=== PATIENT | female | born 1965 | race Asian ===

== ENCOUNTER 2018-09-26 01:04 | Emergency (ER) | payer MEDICAID ==
[2018-09-26 01:57] VITALS: BP 124/74
[2018-09-26 03:12] LABS: Basophils # (Auto) 0.1 K/mm3 (0.0-0.1); Basophils % (Auto) 0.5 % (0.0-1.8); Eosinophils # (Auto) 0.3 K/mm3 (0.0-0.4); Eosinophils % (Auto) 2.5 % (0.0-4.3); Hematocrit 34.5 % (30.3-42.9); Hemoglobin 11.5 gm/dl (10.1-14.3); Lymphocytes # (Auto) 2.8 K/mm3 (1.2-5.4); Lymphocytes % (Auto) 21.1 % (13.4-35.0); Mean Corpuscular HGB Conc 33 % (30-34); Mean Corpuscular Volume 89 fl (79-97); Monocytes # (Auto) 1.1 K/mm3 (0.0-0.8); Monocytes % (Auto) 8.4 % (0.0-7.3); Platelet Count 236 K/mm3 (140-440); Red Cell Distribution Width 15.3 % (13.2-15.2)
[2018-09-26 03:35] LABS: Calcium 9.3 mg/dL (8.4-10.2); Hemolysis Index 9
[2018-09-26 03:50] LABS: BUN/Creatinine Ratio 40; Blood Urea Nitrogen 12 mg/dL (7-17)
[2018-09-26] MEDS ORDERED: K-DUR PO ONE (04:35)
[2018-09-26] MEDS ORDERED: NEURONTIN PO ONE (04:35)
--- NOTE | 2018-09-26 05:24 | Emergency Department Report ---
ED Extremity Problem HPI - General Chief complaint: Medical Clearance Stated complaint: GENERAL PAIN, LOWER EXTREMITY ITCHING Time Seen by Provider: 09/26/18 04:34 Source: patient, EMS Mode of arrival: Stretcher Limitations: No Limitations - History of Present Illness Initial comments: 52-year-old female with a past medical history of HIV, depression, MR, multiple strokes, functional quadriplegia, and colostomy presents to the hospital of complaints of a tingling sensation to bilateral lower extremities. Sensation symptoms with neuropathy in the past. Patient states she uses a topical cream but to her knowledge she is not on any neuropathy medication. She denies significant rash or fever. Severity scale (0 -10): 0 - Related Data Home Medications Medication Instructions Recorded Confirmed Last Taken Tivicay 50 mg PO DAILY 02/19/18 02/19/18 Unknown Previous Rx's Medication Instructions Recorded Last Taken Type Descovy 200-25 mg Tablet 200 mg PO DAILY #30 02/23/18 Unknown Rx Dilantin 100 mg PO Q8HR #90 02/23/18 Unknown Rx Keppra 1,000 mg PO BID #60 02/23/18 Unknown Rx RX: Aspirin EC [Aspirin Enteric 81 mg PO QDAY #30 tablet 02/23/18 Unknown Rx Coated TAB] RX: Baclofen [Lioresal] 10 mg PO TID #30 tablet 02/23/18 Unknown Rx RX: Docusate Sodium [Colace CAP] 100 mg PO BID #30 capsule 02/23/18 Unknown Rx RX: Dolutegravir [Tivicay] 50 mg PO DAILY #30 tablet 02/23/18 Unknown Rx RX: Famotidine [Pepcid] 20 mg PO BID #60 tablet 02/23/18 Unknown Rx RX: LORazepam [Ativan] 1 mg PO QHS #30 tablet 02/23/18 Unknown Rx Remeron 15 mg PO HS #30 02/23/18 Unknown Rx RX: Gabapentin [Neurontin] 300 mg PO Q8HR #90 capsule 09/26/18 Unknown Rx Allergies Allergy/AdvReac Type Severity Reaction Status Date / Time sulfamethoxazole Allergy Severe Anaphylaxis Verified 02/18/18 13:16 [From Bactrim] trimethoprim [From Bactrim] Allergy Severe Anaphylaxis Verified 02/18/18 13:16 ED Review of Systems ROS: Stated complaint: GENERAL PAIN, LOWER EXTREMITY ITCHING Other details as noted in HPI Comment: All other systems reviewed and negative ED Past Medical Hx - Past Medical History Previous Medical History?: Yes Hx CVA: Yes Hx Congestive Heart Failure: No Hx Diabetes: No Hx Psychiatric Treatment: (Depression) Hx Asthma: No Hx COPD: No Hx HIV: Yes Additional medical history: MR, colosotomy - Surgical History Past Surgical History?: Yes Additional Surgical History: Colostomy - Social History Smoking Status: Never Smoker Substance Use Type: None - Medications Home Medications: Home Medications Medication Instructions Recorded Confirmed Last Taken Type Tivicay 50 mg PO DAILY 02/19/18 02/19/18 Unknown History Descovy 200-25 mg Tablet 200 mg PO DAILY #30 02/23/18 Unknown Rx Dilantin 100 mg PO Q8HR #90 02/23/18 Unknown Rx Keppra 1,000 mg PO BID #60 02/23/18 Unknown Rx RX: Aspirin EC [Aspirin Enteric 81 mg PO QDAY #30 tablet 02/23/18 Unknown Rx Coated TAB] RX: Baclofen [Lioresal] 10 mg PO TID #30 tablet 02/23/18 Unknown Rx RX: Docusate Sodium [Colace CAP] 100 mg PO BID #30 capsule 02/23/18 Unknown Rx RX: Dolutegravir [Tivicay] 50 mg PO DAILY #30 tablet 02/23/18 Unknown Rx RX: Famotidine [Pepcid] 20 mg PO BID #60 tablet 02/23/18 Unknown Rx RX: LORazepam [Ativan] 1 mg PO QHS #30 tablet 02/23/18 Unknown Rx Remeron 15 mg PO HS #30 02/23/18 Unknown Rx RX: Gabapentin [Neurontin] 300 mg PO Q8HR #90 capsule 09/26/18 Unknown Rx ED Physical Exam - General Limitations: No Limitations - Other Other exam information: General: No limitations, patient is alert in no acute distress Head exam: Atraumatic, normocephalic Eyes exam: Normal appearance, pupils equal reactive to light, extraocular movements intact ENT: Moist mucous membrane, normal oropharynx Neck exam: Normal inspection, full range of motion, no meningismus nontender Respiratory exam: Clear to auscultation bilateral, no wheezes, rales, crackles Cardiovascular: Normal rate and rhythm, normal heart sounds Abdomen: Soft, nondistended, and nontender, with normal bowel sounds, no rebound, or guarding Extremity: Full range of motion normal inspection no deformity, 2+ dp pulses b/l. Back: Normal Inspection, full range of motion, no tenderness Neurologic: Alert, right sided weakness > left. sensation grossly intact, functional quad Psychiatric: normal affect, normal mood Skin: Small raised scattered erythematous bumps to fluids and leg. Approximately 2-3 per leg. ED Course Vital Signs 09/26/18 01:45 Temperature 98.4 F Pulse Rate 70 Respiratory 19 Rate Blood Pressure 124/74 Blood Pressure 124/74 [Left] O2 Sat by Pulse 98 Oximetry ED Medical Decision Making - Lab Data Result diagrams: 09/26/18 02:51 09/26/18 02:51 Lab Results 09/26/18 09/26/18 Range/Units 02:51 02:51 WBC 13.2 H (4.5-11.0) K/mm3 RBC 3.90 (3.65-5.03) M/mm3 Hgb 11.5 (10.1-14.3) gm/dl Hct 34.5 (30.3-42.9) % MCV 89 (79-97) fl MCH 29 (28-32) pg MCHC 33 (30-34) % RDW 15.3 H (13.2-15.2) % Plt Count 236 (140-440) K/mm3 Lymph % (Auto) 21.1 (13.4-35.0) % [place] % (Auto) 8.4 H (0.0-7.3) % Eos % (Auto) 2.5 (0.0-4.3) % Baso % (Auto) 0.5 (0.0-1.8) % Lymph # 2.8 (1.2-5.4) K/mm3 [place] # 1.1 H (0.0-0.8) K/mm3 Eos # 0.3 (0.0-0.4) K/mm3 Baso # 0.1 (0.0-0.1) K/mm3 Seg Neutrophils % 67.5 (40.0-70.0) % Seg Neutrophils # 8.9 H (1.8-7.7) K/mm3 Sodium 137 (137-145) mmol/L Potassium 3.5 L (3.6-5.0) mmol/L Chloride 100.2 (98-107) mmol/L Carbon Dioxide 21 L (22-30) mmol/L Anion Gap 19 mmol/L BUN 12 (7-17) mg/dL Creatinine 0.3 L (0.7-1.2) mg/dL Estimated GFR > 60 ml/min BUN/Creatinine Ratio 40 % Glucose 112 H (65-100) mg/dL Calcium 9.3 (8.4-10.2) mg/dL - Medical Decision Making Patient treated with gabapentin by mouth potassium for mild hypokalemia - Differential Diagnosis neuropathy, literally abnormalities, pruritus, renal failure, rash Critical Care Time: No Critical care attestation.: If time is entered above; I have spent that time in minutes in the direct care of this critically ill patient, excluding procedure time. ED Disposition Clinical Impression: Neuropathy, HIV (human immunodeficiency virus infection), Hypokalemia Disposition: TO HOME OR SELFCARE Is pt being admited?: No Does the pt Need Aspirin: No Condition: Stable Instructions: Paresthesia (ED), Hypokalemia (ED) Additional Instructions: Take the medication as prescribed. Follow up with your doctor or the clinic/doctor provided. Return if symptoms worsen as indicated by your discharge instructions Prescriptions: RX: Gabapentin [Neurontin] 300 mg PO Q8HR #90 capsule Referrals: KATRINA HAWTHORNE MD [Primary Care Provider] - 3-5 Days your, doctor [Other] - 3-5 Days Time of Disposition: 05:45
== END 2018-09-26 07:57 | disposition home or self-care (01) ==
LOC: ED 01:04
DX: G62.9 Polyneuropathy, unspecified (principal); E87.6 Hypokalemia; F32.9 Major depressive disorder, single episode, unspecified; Z86.73 Personal history of transient ischemic attack (TIA), and cerebral infarction without residual deficits; Z88.2 Allergy status to sulfonamides
CPT/HCPCS: 36415; 80048; 85025; 99283

== ENCOUNTER 2019-03-20 21:13 | Emergency (ER) | payer MEDICAID ==
--- NOTE | 2019-03-20 22:54 | Emergency Department Report ---
ED General Adult HPI - General Chief complaint: Skin Rash Stated complaint: RASH Time Seen by Provider: 03/20/19 22:16 Source: EMS Mode of arrival: Stretcher Limitations: Physical Limitation - History of Present Illness Initial comments: Patient is a 53-year-old female presents emergency room with complaints of a rash the bilateral lower extremities that began 3 weeks ago. She states that the rash does itch. States that she is also had increased swelling and pain in her right leg that began yesterday. States she has a past medical history of neuropathy and takes gabapentin. She states that she has chronic tingling in the bilateral lower extremities. He denies any fever, chills, nausea, vomiting, chest pain, shortness of breath, any other symptoms. patient is from a [facility]. - Related Data Home Medications Medication Instructions Recorded Confirmed Last Taken Tivicay 50 mg PO DAILY 02/19/18 02/19/18 Unknown Previous Rx's Medication Instructions Recorded Last Taken Type Aspirin EC [Halfprin EC] 81 mg PO QDAY #30 tablet 02/23/18 Unknown Rx Baclofen [Lioresal] 10 mg PO TID #30 tablet 02/23/18 Unknown Rx Descovy 200-25 mg Tablet 200 mg PO DAILY #30 02/23/18 Unknown Rx Dilantin 100 mg PO Q8HR #90 02/23/18 Unknown Rx Docusate Sodium [Colace CAP] 100 mg PO BID #30 capsule 02/23/18 Unknown Rx Dolutegravir [Tivicay] 50 mg PO DAILY #30 tablet 02/23/18 Unknown Rx Famotidine [Pepcid] 20 mg PO BID #60 tablet 02/23/18 Unknown Rx Keppra 1,000 mg PO BID #60 02/23/18 Unknown Rx LORazepam [Ativan] 1 mg PO QHS #30 tablet 02/23/18 Unknown Rx Remeron 15 mg PO HS #30 02/23/18 Unknown Rx Gabapentin 300 mg PO Q8HR #90 capsule 09/26/18 Unknown Rx Clindamycin [Clindamycin CAP] 450 mg PO TID 7 Days #63 capsule 03/21/19 Unknown Rx Hydrocortisone [Hydrocortisone 1 applicatio TP BID #1 oint...g. 03/21/19 Unknown Rx 2.5% OINT] Allergies Allergy/AdvReac Type Severity Reaction Status Date / Time sulfamethoxazole Allergy Severe Anaphylaxis Verified 02/18/18 13:16 [From Bactrim] trimethoprim [From Bactrim] Allergy Severe Anaphylaxis Verified 02/18/18 13:16 ED Review of Systems ROS: Stated complaint: RASH Other details as noted in HPI Comment: All other systems reviewed and negative ED Past Medical Hx - Past Medical History Hx CVA: Yes Hx Congestive Heart Failure: No Hx Diabetes: No Hx Psychiatric Treatment: (Depression) Hx Asthma: No Hx COPD: No Hx HIV: Yes Additional medical history: MR, colosotomy - Surgical History Additional Surgical History: Colostomy - Social History Smoking Status: Never Smoker Substance Use Type: None - Medications Home Medications: Home Medications Medication Instructions Recorded Confirmed Last Taken Type Tivicay 50 mg PO DAILY 02/19/18 02/19/18 Unknown History Aspirin EC [Halfprin EC] 81 mg PO QDAY #30 tablet 02/23/18 Unknown Rx Baclofen [Lioresal] 10 mg PO TID #30 tablet 02/23/18 Unknown Rx Descovy 200-25 mg Tablet 200 mg PO DAILY #30 02/23/18 Unknown Rx Dilantin 100 mg PO Q8HR #90 02/23/18 Unknown Rx Docusate Sodium [Colace CAP] 100 mg PO BID #30 capsule 02/23/18 Unknown Rx Dolutegravir [Tivicay] 50 mg PO DAILY #30 tablet 02/23/18 Unknown Rx Famotidine [Pepcid] 20 mg PO BID #60 tablet 02/23/18 Unknown Rx Keppra 1,000 mg PO BID #60 02/23/18 Unknown Rx LORazepam [Ativan] 1 mg PO QHS #30 tablet 02/23/18 Unknown Rx Remeron 15 mg PO HS #30 02/23/18 Unknown Rx Gabapentin 300 mg PO Q8HR #90 capsule 09/26/18 Unknown Rx Clindamycin [Clindamycin CAP] 450 mg PO TID 7 Days #63 capsule 03/21/19 Unknown Rx Hydrocortisone [Hydrocortisone 1 applicatio TP BID #1 oint...g. 03/21/19 Unknown Rx 2.5% OINT] ED Physical Exam - General Limitations: Physical Limitation General appearance: alert, in no apparent distress - Head Head exam: Present: atraumatic, normocephalic - Eye Eye exam: Present: normal appearance - ENT ENT exam: Present: mucous membranes moist - Extremities Exam Extremities exam: Present: other (bilateral LE edema, non pitting, right greater than left, right leg is erythematous and increased warmth which is not present to the left leg, 2+ distal pulses, touch sensation intact) - Neurological Exam Neurological exam: Present: alert, oriented X3 - Psychiatric Psychiatric exam: Present: normal affect, normal mood - Skin Skin exam: Present: warm, dry, other (small erythematous macules present to the bilateral shins and to the plantar aspect of the feet) ED Course Vital Signs 03/20/19 03/20/19 03/20/19 21:45 21:50 22:00 Temperature 97.9 F Pulse Rate 67 64 Respiratory 15 18 13 Rate Blood Pressure 125/71 125/71 O2 Sat by Pulse 98 100 Oximetry 03/20/19 03/20/19 03/20/19 22:16 22:30 22:46 Temperature Pulse Rate 64 64 66 Respiratory 14 12 13 Rate Blood Pressure 123/70 129/54 102/51 O2 Sat by Pulse 96 95 100 Oximetry 03/20/19 03/20/19 03/20/19 23:00 23:16 23:30 Temperature Pulse Rate 65 65 75 Respiratory 12 12 15 Rate Blood Pressure 102/51 130/59 98/45 O2 Sat by Pulse 97 99 100 Oximetry 03/20/19 03/21/19 03/21/19 23:46 00:00 00:16 Temperature Pulse Rate 65 59 L 69 Respiratory 12 11 L 12 Rate Blood Pressure 104/49 98/45 107/58 O2 Sat by Pulse 99 99 96 Oximetry 03/21/19 03/21/19 03/21/19 00:30 00:46 01:00 Temperature Pulse Rate 60 75 71 Respiratory 13 11 L 13 Rate Blood Pressure 107/58 110/48 107/58 O2 Sat by Pulse 96 72 L 98 Oximetry 03/21/19 03/21/19 03/21/19 01:16 01:30 01:46 Temperature Pulse Rate 63 62 62 Respiratory 12 12 13 Rate Blood Pressure 104/57 104/57 93/63 O2 Sat by Pulse 98 99 98 Oximetry 03/21/19 03/21/19 03/21/19 02:00 02:16 02:30 Temperature Pulse Rate 57 L 63 79 Respiratory 12 12 15 Rate Blood Pressure 106/56 97/56 97/56 O2 Sat by Pulse 98 95 88 Oximetry 03/21/19 03/21/19 03/21/19 02:46 03:00 03:16 Temperature Pulse Rate 64 65 76 Respiratory 12 13 20 Rate Blood Pressure 118/59 118/59 125/69 O2 Sat by Pulse 100 100 100 Oximetry 03/21/19 03/21/19 03/21/19 03:30 03:46 04:00 Temperature Pulse Rate 67 75 63 Respiratory 12 17 15 Rate Blood Pressure 115/66 119/66 125/60 O2 Sat by Pulse 99 100 98 Oximetry 03/21/19 03/21/19 03/21/19 04:16 04:30 04:46 Temperature Pulse Rate 59 L 60 63 Respiratory 15 12 12 Rate Blood Pressure 120/51 127/52 108/52 O2 Sat by Pulse 96 100 99 Oximetry 03/21/19 06:02 Temperature 97.9 F Pulse Rate 63 Respiratory 12 Rate Blood Pressure O2 Sat by Pulse 99 Oximetry ED Medical Decision Making - Lab Data Result diagrams: 03/21/19 03:35 03/21/19 03:35 Lab Results 03/21/19 03/21/19 03/21/19 Range/Units 03:35 03:35 03:35 WBC 11.5 H (4.5-11.0) K/mm3 RBC 3.50 L (3.65-5.03) M/mm3 Hgb 10.3 (10.1-14.3) gm/dl Hct 31.2 (30.3-42.9) % MCV 89 (79-97) fl MCH 29 (28-32) pg MCHC 33 (30-34) % RDW 14.6 (13.2-15.2) % Plt Count 263 (140-440) K/mm3 Lymph % (Auto) 23.2 (13.4-35.0) % [place] % (Auto) 7.6 H (0.0-7.3) % Eos % (Auto) 3.8 (0.0-4.3) % Baso % (Auto) 0.5 (0.0-1.8) % Lymph # 2.7 (1.2-5.4) K/mm3 [place] # 0.9 H (0.0-0.8) K/mm3 Eos # 0.4 (0.0-0.4) K/mm3 Baso # 0.1 (0.0-0.1) K/mm3 Seg Neutrophils % 64.9 (40.0-70.0) % Seg Neutrophils # 7.5 (1.8-7.7) K/mm3 PT 13.5 (12.2-14.9) Sec. INR 1.04 (0.87-1.13) APTT 32.7 (24.2-36.6) Sec. Sodium 140 (137-145) mmol/L Potassium 4.1 (3.6-5.0) mmol/L Chloride 105.0 (98-107) mmol/L Carbon Dioxide 23 (22-30) mmol/L Anion Gap 16 mmol/L BUN 14 (7-17) mg/dL Creatinine 0.3 L (0.7-1.2) mg/dL Estimated GFR > 60 ml/min BUN/Creatinine Ratio 47 % Glucose 102 H (65-100) mg/dL Calcium 9.3 (8.4-10.2) mg/dL Total Bilirubin < 0.20 (0.1-1.2) mg/dL AST 12 (5-40) units/L ALT 10 (7-56) units/L Alkaline Phosphatase 226 H (35-129) units/L Total Protein 8.3 H (6.3-8.2) g/dL Albumin 3.8 L (3.9-5) g/dL Albumin/Globulin Ratio 0.8 % Syphilis IgG Antibody (NonReactive) 03/21/19 Range/Units 04:45 WBC (4.5-11.0) K/mm3 RBC (3.65-5.03) M/mm3 Hgb (10.1-14.3) gm/dl Hct (30.3-42.9) % MCV (79-97) fl MCH (28-32) pg MCHC (30-34) % RDW (13.2-15.2) % Plt Count (140-440) K/mm3 Lymph % (Auto) (13.4-35.0) % [place] % (Auto) (0.0-7.3) % Eos % (Auto) (0.0-4.3) % Baso % (Auto) (0.0-1.8) % Lymph # (1.2-5.4) K/mm3 [place] # (0.0-0.8) K/mm3 Eos # (0.0-0.4) K/mm3 Baso # (0.0-0.1) K/mm3 Seg Neutrophils % (40.0-70.0) % Seg Neutrophils # (1.8-7.7) K/mm3 PT (12.2-14.9) Sec. INR (0.87-1.13) APTT (24.2-36.6) Sec. Sodium (137-145) mmol/L Potassium (3.6-5.0) mmol/L Chloride (98-107) mmol/L Carbon Dioxide (22-30) mmol/L Anion Gap mmol/L BUN (7-17) mg/dL Creatinine (0.7-1.2) mg/dL Estimated GFR ml/min BUN/Creatinine Ratio % Glucose (65-100) mg/dL Calcium (8.4-10.2) mg/dL Total Bilirubin (0.1-1.2) mg/dL AST (5-40) units/L ALT (7-56) units/L Alkaline Phosphatase (35-129) units/L Total Protein (6.3-8.2) g/dL Albumin (3.9-5) g/dL Albumin/Globulin Ratio % Syphilis IgG Antibody Non-reactive (NonReactive) - Radiology Data Radiology results: report reviewed - Medical Decision Making Patient is a 53-year-old female presents emergency room with complaints of a rash the bilateral lower extremities that began 3 weeks ago. She states that the rash does itch. States that she is also had increased swelling and pain in her right leg that began yesterday. States she has a past medical history of neuropathy and takes gabapentin. She states that she has chronic tingling in the bilateral lower extremities. He denies any fever, chills, nausea, vomiting, chest pain, shortness of breath, any other symptoms. patient is from a [facility]. on exam: small erythematous macules present to the bilateral shins and to the plantar aspect of the feet, bilateral LE edema, non pitting, right greater than left, right leg is erythematous and increased warmth which is not present t o the left leg, 2+ distal pulses, touch sensation intact VSS. spoke with Dr. Ruiz regarding pts rash, he recommended sending RPR and treat patient prophylactically, he believes rash is most likely dermatitis but due to being on soles of feet recommended to treat. Labs are stable. Syphilis is nonreactive. Ultrasound right lower extremity negative for DVT. Will treat patient for dermatitis and cellulitis. pt given prescription for clindamycin and hydrocortisone cream. advised pt to Please give medication as prescribed. Please increase her fluid intake over the next several days. May give Benadryl as needed for itching. Follow up with a primary care doctor in the next 2 days for reexamination. Return to the emergency room immediately for any new or worsening symptoms or any worsening signs of infection despite antibiotic therapy including increasing redness, increasing swelling, increasing warmth, fever, chills, etc. - Differential Diagnosis DVT, cellulitis, dermatitis, seconary syphilis, vasculitis, venous stasis Critical care attestation.: If time is entered above; I have spent that time in minutes in the direct care of this critically ill patient, excluding procedure time. ED Disposition Clinical Impression: Rash Cellulitis Qualifiers: Site of cellulitis: extremity Site of cellulitis of extremity: lower extremity Laterality: right Qualified Code(s): L03.115 - Cellulitis of right lower limb Disposition: DC/TX-70 ANOTHER TYPE HLTHCARE Is pt being admited?: No Does the pt Need Aspirin: No Condition: Stable Instructions: Cellulitis (ED), Acute Rash (ED) Additional Instructions: Please give medication as prescribed. Please increase her fluid intake over the next several days. May give Benadryl as needed for itching. Follow up with a primary care doctor in the next 2 days for reexamination. Return to the emergency room immediately for any new or worsening symptoms or any worsening signs of infection despite antibiotic therapy including increasing redness, increasing swelling, increasing warmth, fever, chills, etc. Prescriptions: Clindamycin [Clindamycin CAP] 450 mg PO TID 7 Days #63 capsule Hydrocortisone [Hydrocortisone 2.5% OINT] 1 applicatio TP BID #1 oint...g. Referrals: [facility] [Provider Group] - 2-3 Days Time of Disposition: 04:43 Print Language: CAMBODIAN
[2019-03-21] MEDS ORDERED: diphenhydrAMINE 25 MG CAP PO ONE (03:17)
[2019-03-21 03:59] LABS: Basophils # (Auto) 0.1 K/mm3 (0.0-0.1); Basophils % (Auto) 0.5 % (0.0-1.8); Eosinophils # (Auto) 0.4 K/mm3 (0.0-0.4); Eosinophils % (Auto) 3.8 % (0.0-4.3); Hematocrit 31.2 % (30.3-42.9); Hemoglobin 10.3 gm/dl (10.1-14.3); Lymphocytes # (Auto) 2.7 K/mm3 (1.2-5.4); Lymphocytes % (Auto) 23.2 % (13.4-35.0); Mean Corpuscular HGB Conc 33 % (30-34); Mean Corpuscular Volume 89 fl (79-97); Monocytes # (Auto) 0.9 K/mm3 (0.0-0.8); Monocytes % (Auto) 7.6 % (0.0-7.3); Platelet Count 263 K/mm3 (140-440); Red Cell Distribution Width 14.6 % (13.2-15.2)
[2019-03-21 04:09] LABS: INR 1.04 (0.87-1.13)
[2019-03-21 04:10] LABS: Partial Thromboplastin Time 32.7 Sec. (24.2-36.6)
[2019-03-21] MEDS ORDERED: PENICILLIN G BENZATHINE 1.2 MILLION UNIT/2 ML INJ IM ONE (04:17)
[2019-03-21 04:43] LABS: Alanine Aminotransferase 10 units/L (7-56); Albumin 3.8 g/dL (3.9-5); BUN/Creatinine Ratio 47; Blood Urea Nitrogen 14 mg/dL (7-17); Calcium 9.3 mg/dL (8.4-10.2); Hemolysis Index 0
--- NOTE | 2019-03-21 04:44 | Vascular Lab Report ---
DUPLEX DOPPLER LOWER EXTREMITY VEINS, RIGHT INDICATION / CLINICAL INFORMATION: increased warmth, erythema, RLE edema. TECHNIQUE: Duplex doppler imaging was performed through the veins of the right lower extremity using venous comp ression and other maneuvers. COMPARISON: None available. FINDINGS: COMMON FEMORAL VEIN: Negative. FEMORAL VEIN: Negative. POPLITEAL VEIN: Negative. CALF VEINS: Negative. ADDITIONAL FINDINGS: None. IMPRESSION: 1. No sonographic evidence for DVT in the right lower extremity. Signer Name: Tressa García MD Signed: 03/21/2019 4:40 AM Workstation Name: [id number]
[2019-03-21 05:01] VITALS: BP 108/52
== END 2019-03-21 06:01 | disposition other institution (70) ==
LOC: ED 21:13
DX: L03.115 Cellulitis of right lower limb (principal); Z86.73 Personal history of transient ischemic attack (TIA), and cerebral infarction without residual deficits; F32.9 Major depressive disorder, single episode, unspecified
CPT/HCPCS: 36415; 80053; 85025; 85610; 85730; 86592; 93971; 96372; 99284; J0561